=== PATIENT | male | born 1965 | race Caucasian/White ===

== ENCOUNTER 2018-12-23 06:53 | Emergency (ER) | payer OTHER ==
--- NOTE | 2018-12-23 07:01 | ED Physician Documentation ---
PD HPI LOWER EXT INJURY - Stated complaint Stated Complaint: L LEG LACERATION - History obtained from History obtained from: Patient - History of Present Illness PD HPI LOW EXT INJURY LOCATION: Left, Thigh Type of injury: Laceration (he accidentally pushed his leg against melissa tip of his arrow in the quiver (it was sitting on the floor), with laceration to the thigh that bled well.) Where injury occurred: Home Timing - onset: Today Timing - details: Abrupt onset, Still present (bleeding stopped enroute.) Worsened by: Palpating Associated symptoms: No: Weakness, Numbness Contributing factors: No: Anticoagulated Review of Systems Skin: reports: Laceration (s) Neurologic: denies: Focal weakness, Numbness PD PAST MEDICAL HISTORY - Past Medical History Past Medical History: No - Allergies Allergies/Adverse Reactions: Allergies Allergy/AdvReac Type Severity Reaction Status Date / Time No Known Drug Allergies Allergy Verified 12/23/18 07:03 PD ED PE NORMAL - Vitals Vital signs reviewed: Yes - General General: Alert and oriented X 3, No acute distress, Well developed/nourished - Derm Derm: Normal color, Warm and dry - Extremities Extremities: Other (The left thigh has a V-shaped laceration in the anterior aspect with mild bleeding. There is no foreign body. It goes down the sub-cutaneous fatty tissue but no muscle exposure. It is 2 cm in length.) - Neuro Neuro: Alert and oriented X 3, No motor deficit, No sensory deficit Results - Vitals Vitals: Vital Signs - 24 hr 12/23/18 07:01 Temperature 36.5 C Heart Rate 60 Respiratory 17 Rate Blood Pressure 125/84 H O2 Saturation 99 Oxygen O2 Source Room air Procedures - Laceration (location) left thigh anterior Length in cm: 2 Wound type: Flap (v-shaped), Into subcut fat, Clean Neurovascular status: Sensory intact, Motor intact, Vascular intact Anesthesia: Lidocaine 2% Wound Preparation: Wound explored, To the base. No: FB identified Skin layer closure: Nylon, Interrupted, Size #-0 - enter number (4), Sutures - enter # (5) Other: Patient tolerated well, No complications, Neurovascular intact, Dressing applied, Tetanus UTD Complexity: Simple Departure - Departure Disposition: 01 Home, Self Care Clinical Impression: Laceration of left thigh Qualifiers: Encounter type: initial encounter Qualified Code(s): S71.112A - Laceration without foreign body, left thigh, initial encounter Condition: Stable Record reviewed to determine appropriate education?: Yes Instructions: ED Laceration All Comments: It is okay to wash and shower. Clean off the wound twice a day with soap and water, or peroxide and water. Apply some antibiotic ointment to it to keep it moist. Also to watch for signs of infection such as purulence, redness or increasing pain. Return to your primary care or the ER at the specified time for suture removal. Suture removal 8 to 10 days Tylenol or ibuprofen if needed for pain.
[2018-12-23 07:03] VITALS: BP 125/84
== END 2018-12-23 07:43 | disposition home or self-care (01) ==
LOC: ED 06:53
DX: S71.112A Laceration without foreign body, left thigh, initial encounter (principal); W22.8XXA Striking against or struck by other objects, initial encounter; Y92.009 Unspecified place in unspecified non-institutional (private) residence as the place of occurrence of the external cause
CPT/HCPCS: 12001; 99281

== ENCOUNTER 2018-12-29 11:42 | Emergency (ER) | payer OTHER ==
--- NOTE | 2018-12-29 12:45 | ED Physician Documentation ---
PD HPI HEAD INJURY - Stated complaint Stated Complaint: HEAD LAC - Chief complaint Chief Complaint: Laceration - History obtained from History obtained from: Patient - History of Present Illness Mechanism of head injury: Blow Where head injury occurred: Home Timing - onset: Today Location of injury: Front Quality of pain: Pain Associated symptoms: Other (laceration). No: LOC, AMS, Amnesia, Nausea / vomiting, Neck pain, Paresthesias, Seizures, Ear drainage, Nasal drainage Symptoms improve with: Rest Symptoms worsen with: Palpation Contributing factors: No: Anticoagulated Similar symptoms before: Diagnosis (laceration) Recently seen: Not recently seen - Additional information Additional information: 53-year-old male was up on a ladder today pulling some lumbar when something fell from above glancing his head and causing a small laceration. The patient had no loss of consciousness he did not see stars and he has no neck pain. He denies any nausea dizziness or difficulty concentrating. Review of Systems Constitutional: denies: Fever Eyes: denies: Decreased vision Ears: denies: Loss of hearing, Ear pain Nose: denies: Congestion Throat: denies: Sore throat Respiratory: denies: Cough GI: denies: Nausea, Vomiting Skin: reports: Laceration (s) PD PAST MEDICAL HISTORY - Allergies Allergies/Adverse Reactions: Allergies Allergy/AdvReac Type Severity Reaction Status Date / Time No Known Drug Allergies Allergy Verified 12/23/18 07:03 - Social History Does the pt smoke?: No Smoking Status: Never smoker PD ED PE NORMAL - Vitals Vital signs reviewed: Yes (hypertensive ) - General General: Alert and oriented X 3, No acute distress, Well developed/nourished - HEENT HEENT: PERRL, EOMI, Other (There is a 2cm superficial flap laceration to the scalp just foreward of the vertex. ) - Neck Neck: Supple, no meningeal sign, No bony TTP - Respiratory Respiratory: No respiratory distress - Derm Derm: Normal color, Warm and dry, No rash - Extremities Extremities: No deformity, No edema - Neuro Neuro: Alert and oriented X 3, fluid dynamicist 2-12 intact, No motor deficit, No sensory deficit, Normal speech Eye Opening: Spontaneous Motor: Obeys Commands Verbal: Oriented GCS Score: 15 - Psych Psych: Normal mood, Normal affect Results - Vitals Vitals: Vital Signs - 24 hr 12/29/18 11:59 Temperature 36.3 C L Heart Rate 70 Respiratory 18 Rate Blood Pressure 130/81 H O2 Saturation 98 Oxygen O2 Source Room air Procedures - Laceration (location) scalp Length in cm: 2 Wound type: Curved, Flap, Superficial, Clean Neurovascular status: Sensory intact, Motor intact, Vascular intact Wound Preparation: Irrigated copiously NS, Wound explored, To the base Skin layer closure: Dermabond Other: Patient tolerated well, No complications, Neurovascular intact, Dressing applied, Tetanus UTD Complexity: Simple PD MEDICAL DECISION MAKING - ED course Complexity details: considered differential, d/w patient ED course: 53-year-old male with a superficial flap laceration to the scalp is repaired with Dermabond and tolerates this well. He is uncertain about his tetanus status thinks it might of been 3 or 4 years ago and he is going in for a follow-up. This wound is not deep and is not contaminated. Departure - Departure Disposition: 01 Home, Self Care Clinical Impression: Scalp laceration Qualifiers: Encounter type: initial encounter Qualified Code(s): S01.01XA - Laceration without foreign body of scalp, initial encounter Condition: Stable Instructions: ED Laceration Facial Skin Glue Follow-Up: Your, doctor [Other]
[2018-12-29 12:51] VITALS: BP 128/80
== END 2018-12-29 12:50 | disposition home or self-care (01) ==
LOC: ED 11:42
DX: S01.01XA Laceration without foreign body of scalp, initial encounter (principal); W20.8XXA Other cause of strike by thrown, projected or falling object, initial encounter; Y93.89 Activity, other specified; Y92.009 Unspecified place in unspecified non-institutional (private) residence as the place of occurrence of the external cause
CPT/HCPCS: 12001; 99281

== ENCOUNTER 2019-10-06 17:48 | Emergency (ER) | payer OTHER ==
[2019-10-06] MEDS ORDERED: KETOROLAC 30 MG/ML VIAL IVP STA (18:03)
[2019-10-06] MEDS ORDERED: SODIUM CHLORIDE 0.9% 1,000 ML IV STA (18:03)
[2019-10-06] MEDS ORDERED: DEXAMETHASONE 10 MG/ML VIAL IVP STA (18:03)
--- NOTE | 2019-10-06 18:04 | ED Physician Documentation ---
History of Present Illness - Stated complaint Stated Complaint: CHILLS - Chief complaint Chief Complaint: General - History obtained from History obtained from: Patient (Healthy 54-year-old gentleman developed shaking chills, fevers, fatigue and sore throat 3 days ago. He has a somewhat muffled voice and feels himself drooling more than normal. Denies runny nose or cough. No sick contacts.) Review of Systems Constitutional: reports: Fever, Chills Nose: denies: Rhinorrhea / runny nose Throat: reports: Sore throat Respiratory: denies: Dyspnea, Cough PD PAST MEDICAL HISTORY - Present Medications Home Medications: Ambulatory Orders Medication Instructions Recorded Confirmed predniSONE [Deltasone] 60 mg PO DAILY 5 Days #15 tablet 10/06/19 - Allergies Allergies/Adverse Reactions: Allergies Allergy/AdvReac Type Severity Reaction Status Date / Time No Known Drug Allergies Allergy Verified 10/06/19 17:55 - Social History Does the pt smoke?: No Smoking Status: Never smoker PD ED PE NORMAL - Vitals Vital signs reviewed: Yes - General General: Alert and oriented X 3, No acute distress - HEENT HEENT: PERRL, EOMI, Other (He has almost kissing tonsillitis with quite red tonsils and tonsillar pillars.) - Neck Neck: Supple, no meningeal sign, No bony TTP - Neuro Neuro: Alert and oriented X 3, Normal speech - Psych Psych: Normal mood, Normal affect Results - Vitals Vitals: Vital Signs - 24 hr 10/06/19 10/06/19 10/06/19 17:51 18:03 18:33 Temperature 39.6 C H Heart Rate 116 H 110 H 104 H Respiratory 18 31 H 26 H Rate Blood Pressure 139/85 H 151/100 H 146/88 H O2 Saturation 96 96 96 10/06/19 10/06/19 19:03 19:30 Temperature 37.8 C H Heart Rate 98 93 Respiratory 20 28 H Rate Blood Pressure 137/82 H 140/96 H O2 Saturation 98 96 Oxygen O2 Source Room air - Labs Labs: Laboratory Tests 10/06/19 10/06/19 10/06/19 18:09 18:18 18:18 WBC 11.7 H RBC 5.10 Hgb 15.3 Hct 44.4 MCV 87.1 MCH 30.0 MCHC 34.5 RDW 12.6 Plt Count 183 MPV 9.0 Neut # (Auto) Not Reportable Lymph # (Auto) Not Reportable [place] # (Auto) Not Reportable Eos # (Auto) Not Reportable Baso # (Auto) Not Reportable Absolute Nucleated RBC Not Reportable Total Counted 100 Band Neuts % (Manual) 6 Abnorm Lymph % (Manual) 0 Nucleated RBC % Not Reportable Neutrophils # (Manual) 9.2 H Lymphocytes # (Manual) 0.9 L Monocytes # (Manual) 1.5 H Eosinophils # (Manual) 0.0 Basophils # (Manual) 0.0 Differential Comment MANUAL DIFFERENTIAL Manual Slide Review Indicated Platelet Estimate NORMAL (130-450,000) Platelet Morphology NORMAL APPEARANCE RBC Morph Micro Appear NORMAL APPEARANCE Sodium 132 L Potassium 3.6 Chloride 93 L Carbon Dioxide 23 Anion Gap 16.0 H BUN 16 Creatinine 1.0 Estimated GFR (MDRD) 78 L Glucose 118 H Lactic Acid Calcium 8.6 Total Bilirubin 0.8 AST 30 ALT 41 Alkaline Phosphatase 65 Total Protein 8.3 H Albumin 4.0 Globulin 4.3 H Albumin/Globulin Ratio 0.9 L Lipase 25 Group A Strep Rapid Negative 10/06/19 18:18 WBC RBC Hgb Hct MCV MCH MCHC RDW Plt Count MPV Neut # (Auto) Lymph # (Auto) [place] # (Auto) Eos # (Auto) Baso # (Auto) Absolute Nucleated RBC Total Counted Band Neuts % (Manual) Abnorm Lymph % (Manual) Nucleated RBC % Neutrophils # (Manual) Lymphocytes # (Manual) Monocytes # (Manual) Eosinophils # (Manual) Basophils # (Manual) Differential Comment Manual Slide Review Platelet Estimate Platelet Morphology RBC Morph Micro Appear Sodium Potassium Chloride Carbon Dioxide Anion Gap BUN Creatinine Estimated GFR (MDRD) Glucose Lactic Acid 1.4 Calcium Total Bilirubin AST ALT Alkaline Phosphatase Total Protein Albumin Globulin Albumin/Globulin Ratio Lipase Group A Strep Rapid PD MEDICAL DECISION MAKING - ED course ED course: 54-year-old gentleman with high fever, sore throat and clinical findings of tonsillitis. Mild elevation in white count. No other clinical markers of sepsis. Feeling better after IV fluids, Toradol, Decadron. Received IM penicillin. Departure - Departure Disposition: 01 Home, Self Care Clinical Impression: Pharyngitis Qualifiers: Pharyngitis/tonsillitis etiology: streptococcus Qualified Code(s): J02.0 - Streptococcal pharyngitis Fever Qualifiers: Fever type: unspecified Qualified Code(s): R50.9 - Fever, unspecified Condition: Good Record reviewed to determine appropriate education?: Yes Instructions: ED Strep Pharyngitis Poss Prescriptions: predniSONE [Deltasone] 60 mg PO DAILY 5 Days #15 tablet Comments: Tylenol or ibuprofen as needed for the fever. I am also prescribing some steroids which will help with the inflammation in your throat. Return if worse. He did receive intramuscular penicillin here which should complete the course of antibiotics for the throat infection. Follow-up with your doctor in 2 days for recheck.
[2019-10-06 18:30] LABS: BASOPHILS % (AUTO) 0.2 %; EOSINOPHILS % (AUTO) 0.1 %; HGB - HEMOGLOBIN 15.3 g/dL (14.0-18.0); LYMPHOCYTES % (AUTO) 7.7 %; MEAN CORPUSCULAR HGB CONC 34.5 g/dL (32.0-36.0); MEAN CORPUSCULAR VOLUME 87.1 fL (80.0-94.0); MONOCYTES % (AUTO) 14.1 %; NEUTROPHILS % (AUTO) 77.2 %; PLT - PLATELET COUNT 183 10^3/uL (130-450); RED CELL DISTRIBUTION WIDTH 12.6 % (12.0-15.0); WHITE BLOOD COUNT 11.7 x10^3/uL (4.8-10.8)
[2019-10-06 18:44] LABS: ALBUMIN/GLOBULIN RATIO 0.9 (1.0-2.2); BILIRUBIN,TOTAL 0.8 mg/dL (0.2-1.0); CALCIUM 8.6 mg/dL (8.5-10.3); TOTAL PROTEIN 8.3 g/dL (6.7-8.2)
[2019-10-06 18:51] LABS: RAPID STREP SCREEN Negative (Negative)
[2019-10-06 19:18] LABS: ABNORMAL LYMPHS % (MANUAL) 0 %
[2019-10-06] MEDS ORDERED: cefTRIAXone 1 GM in SODIUM CHLORIDE 0.9% MINIBAG 100 ML IV STA (19:19)
[2019-10-06] MEDS ORDERED: PENICILLIN G BENZATHINE 600,000 UNIT/ML SYRINGE IM STA (19:22)
[2019-10-06 19:46] LABS: BAND NEUTROPHILS % (MANUAL) 6 %; DIFFERENTIAL COMMENT MANUAL DIFFERENTIAL; LYMPHOCYTES # (MANUAL) 0.9 10^3/uL (1.5-3.5); LYMPHOCYTES % (MANUAL) 8 %; MONOCYTES # (MANUAL) 1.5 10^3/uL (0.0-1.0); PLATELET ESTIMATE, MANUAL NORMAL (130-450,000) (NORMAL); PLATELET MORPHOLOGY NORMAL APPEARANCE (NORMAL); RBC MORPHOLOGY (MULTIPLE) NORMAL APPEARANCE (NORMAL)
[2019-10-06 20:10] VITALS: BP 130/74
== END 2019-10-06 20:24 | disposition home or self-care (01) ==
LOC: ED 17:48
DX: J02.0 Streptococcal pharyngitis (principal)
CPT/HCPCS: 36415; 80053; 83605; 83690; 85025; 87070; 87430; 96361; 96374; 99284

== ENCOUNTER 2019-10-07 11:35 | Emergency (ER) | payer OTHER ==
[2019-10-07] MEDS ORDERED: cefTRIAXone 1 GM in SODIUM CHLORIDE 0.9% MINIBAG 100 ML IV STA (13:35)
[2019-10-07] MEDS ORDERED: SODIUM CHLORIDE 0.9% 1,000 ML IV STA (13:35)
[2019-10-07] MEDS ORDERED: KETOROLAC 30 MG/ML VIAL IVP STA (13:35)
--- NOTE | 2019-10-07 13:38 | ED Physician Documentation ---
PD HPI HEENT - Stated complaint Stated Complaint: SORE THROAT/COUGH - Chief complaint Chief Complaint: Heent - History obtained from History obtained from: Patient - History of Present Illness Timing - onset: How many days ago (5) Timing - duration: Days (5) Timing - details: Gradual onset, Still present Location: Throat Improves: Medication Worsens: Swalllowing Associated symptoms: Fever, Congestion, Unable to swallow, Swollen nodes, Headache Similar symptoms before: Has not had sx before Recently seen: Emergency Dept - Additional information Additional information: 54-year-old male developed severe tonsillitis yesterday he had a rapid strep done which was negative he was placed on to penicillin and given a dose of dexamethasone. He was unable to sleep last night this morning he awakens with worsening pain in his throat. His fever is improved. He has not eaten anything in 4 days. He feels he was able to keep up with his fluids but today the pain is limiting. Review of Systems Constitutional: reports: Fever, Chills, Myalgias, Fatigue Eyes: denies: Decreased vision Ears: denies: Ear pain Throat: reports: Sore throat Cardiac: denies: Chest pain / pressure, Palpitations Respiratory: denies: Dyspnea, Cough GI: denies: Abdominal Pain, Nausea, Vomiting : denies: Dysuria, Frequency PD PAST MEDICAL HISTORY - Past Surgical History Past Surgical History: No - Present Medications Home Medications: Ambulatory Orders Medication Instructions Recorded Confirmed predniSONE [Deltasone] 60 mg PO DAILY 5 Days #15 tablet 10/06/19 Amox/Clav 875/125 [Augmentin] 1 each PO Q12H #20 tablet 10/07/19 - Allergies Allergies/Adverse Reactions: Allergies Allergy/AdvReac Type Severity Reaction Status Date / Time No Known Drug Allergies Allergy Verified 10/06/19 17:55 - Social History Does the pt smoke?: No Smoking Status: Never smoker Does the pt drink ETOH?: Yes Does the pt have substance abuse?: No PD ED PE NORMAL - Vitals Vital signs reviewed: Yes (hypertensive ) - General General: Alert and oriented X 3, No acute distress, Well developed/nourished, Other (voice is normal today) - HEENT HEENT: Atraumatic, PERRL, EOMI, Ears normal, Other (The pharynx has 3+ tonsils uvula is markedly inflamed the tonsils are cryptic and exudative. There is a lot of exudate posteriorly. I am not able to appreciate a specific mass. A mass could be easily hiding.) - Neck Neck: Supple, no meningeal sign, No bony TTP - Cardiac Cardiac: RRR, No murmur - Respiratory Respiratory: No respiratory distress, Clear bilaterally - Abdomen Abdomen: Soft, Non tender - Back Back: No CVA TTP, No spinal TTP - Derm Derm: Normal color, Warm and dry, No rash - Extremities Extremities: No deformity, No edema, No calf tenderness / cord - Neuro Neuro: Alert and oriented X 3, central office mechanic 2-12 intact, No motor deficit, No sensory deficit, Normal speech Eye Opening: Spontaneous Motor: Obeys Commands Verbal: Oriented GCS Score: 15 - Psych Psych: Normal mood, Normal affect Results - Vitals Vitals: Vital Signs - 24 hr 10/07/19 11:44 Temperature 37.0 C Heart Rate 75 Respiratory 18 Rate Blood Pressure 137/94 H O2 Saturation 97 Oxygen O2 Source Room air PD MEDICAL DECISION MAKING - ED course Complexity details: considered differential, d/w patient ED course: 54-year-old male with severe tonsillitis with marked swelling and exudate has not been able to eat his pain is a limiting factor today and he feels that he is likely dehydrated as he is not even taking water now. An IV is begun is given intravenous saline and Rocephin as well as Toradol. He has improvement in his pain and ability to swallow. Departure - Departure Disposition: 01 Home, Self Care Clinical Impression: Tonsillopharyngitis Condition: Stable Instructions: ED Peritonsillar Infec Abx No I andD Follow-Up: [facility] [Provider Group] Prescriptions: Amox/Clav 875/125 [Augmentin] 1 each PO Q12H #20 tablet
[2019-10-07 14:54] VITALS: BP 147/88
== END 2019-10-07 15:05 | disposition home or self-care (01) ==
LOC: ED 11:35
DX: J03.90 Acute tonsillitis, unspecified (principal)
CPT/HCPCS: 96365; 96375; 99284

== ENCOUNTER 2019-10-14 15:41 | Outpatient (CLI) | payer MEDICAID ==
[2019-10-14] MEDS ORDERED: IOVERSOL 320 100 ML VIAL IVP ONE ×2 (15:56→16:18)
--- NOTE | 2019-10-14 16:34 | CT Report ---
PROCEDURE: SOFT TISSUE NECK W INDICATIONS: ACUTE TONSILLITIS, UNSPEC CONTRAST: IV CONTRAST: Optiray 320 ml: 100 PO CONTRAST: *NO PO CONTRAST TECHNIQUE: After the administration of intravenous contrast, 3.0 mm axial sections acquired from the sella to th e aortic arch. Additional oblique axial 3.0 mm sections acquired through the pharynx. 3 mm thick co alpesh reformats were generated. For radiation dose reduction, the following was used: automated exp osure control, adjustment of mA and/or kV according to patient size. COMPARISON: None. FINDINGS: Image quality: Excellent. Lymph nodes: Level 2A lymph nodes are enlarged bilaterally measuring 15 mm. Vessels: Visualized vasculature appears patent. Neck spaces: There is bilateral prominence with slight increased enhancement of the tonsillar regions bilaterally. No surrounding inflammatory change. Slight appearance of airway narrowing is present at this level. Glands: The parotid and submandibular glands appear normal. The thyroid is normal in size. Miscellaneous: Visualized brain and orbits appear normal. Lung apices appear clear. Superficial so ft tissues appear normal. Bones: No suspicious bony lesions. Visualized sinuses and mastoids appear unremarkable. IMPRESSION: 1. Mild bilateral prominence of the tonsillar regions bilaterally. No focal fluid collection to sugge st abscess. No surrounding inflammatory change. This could be secondary to reactive infection or infl ammation given presence of prominent lymph nodes. However, other etiologies such as lymphoma or neopl asm cannot be excluded and short interval imaging follow-up is recommended to document resolution. Reviewed by: Nalini Le MD on 10/14/2019 4:33 PM PDT Approved by: Nalini Le MD on 10/14/2019 4:33 PM PDT Station ID: [id number]
== END 2019-10-14 15:42 | disposition home or self-care (01) ==
LOC: DI 15:41
PROVIDERS: ATTEND Otolaryngology
DX: J35.3 Hypertrophy of tonsils with hypertrophy of adenoids (principal); R59.0 Localized enlarged lymph nodes
CPT/HCPCS: 70491; Q9967

== ENCOUNTER 2020-10-18 21:11 | Emergency (ER) | payer MEDICAID, OTHER ==
[2020-10-18] MEDS ORDERED: predniSONE 20 MG TABLET PO STA (21:44)
--- NOTE | 2020-10-18 21:45 | ED Physician Documentation ---
History of Present Illness - Stated complaint Stated Complaint: LT SIDE WEAKNESS - Chief complaint Chief Complaint: General - History obtained from History obtained from: Patient - Additonal information Additional information: 55-year-old man presents with 2 days of left facial weakness that has not gone away since yesterday. He states that he went to a chiropractor at 8 AM and then around 10 AM yesterday he developed L facial weakness. He has no other symptoms and otherwise feels normal. Review of Systems Ten Systems: 10 systems reviewed and negative Constitutional: denies: Fever, Chills, Myalgias Neurologic: reports: Focal weakness, Other (difficulty drinking). denies: Numbness, Difficulty speaking, Headache, Head injury PD PAST MEDICAL HISTORY - Past Surgical History Past Surgical History: No - Present Medications Home Medications: Ambulatory Orders Medication Instructions Recorded Confirmed predniSONE [Deltasone] 60 mg PO DAILY 5 Days #15 tablet 10/06/19 Amox/Clav 875/125 [Augmentin] 1 each PO Q12H #20 tablet 10/07/19 Mineral Oil/Petrolatum,White 3.5 gm OP QPM #1 bottle 10/18/20 [Lubricant Pm Eye Ointment] predniSONE [Deltasone] 60 mg PO QDAC 6 Days #18 tab 10/18/20 - Allergies Allergies/Adverse Reactions: Allergies Allergy/AdvReac Type Severity Reaction Status Date / Time No Known Drug Allergies Allergy Verified 10/18/20 21:31 - Social History Does the pt smoke?: No Smoking Status: Never smoker Does the pt drink ETOH?: Yes Does the pt have substance abuse?: No PD ED PE NORMAL - Vitals Vital signs reviewed: Yes - General General: Alert and oriented X 3, No acute distress, Well developed/nourished - HEENT HEENT: Atraumatic, PERRL, EOMI, Ears normal, Moist mucous membranes, Pharynx benign - Neck Neck: Supple, no meningeal sign - Derm Derm: Normal color, Warm and dry, No rash - Extremities Extremities: No deformity - Neuro Neuro: Alert and oriented X 3, traffic supervisor 2-12 intact, No motor deficit (no deficit with exception of mild upper and lower L facial weakness), No sensory deficit, Normal speech, Other (normal gait, cerebellar testing and strength) - Psych Psych: Normal mood, Normal affect Results - Vitals Vitals: Vital Signs - 24 hr 10/18/20 10/18/20 21:26 21:30 Temperature 36.7 C 36.7 C Heart Rate 70 70 Respiratory 16 16 Rate Blood Pressure 126/79 126/79 O2 Saturation 98 98 Oxygen O2 Source Room air PD MEDICAL DECISION MAKING - ED course ED course: 55-year-old man presents with Hayes's palsy of left upper and lower face. No other deficits noted on thorough neurologic exam. House Brackmann class II (mild dysfunction). will hold acyclovir. Patient has a video conference in 1 week with his primary doctor. He will be evaluated at that time for improvement in symptoms after steroid treatment. Strict return precautions given. Departure - Departure Disposition: 01 Home, Self Care Clinical Impression: Hayes palsy Condition: Good Instructions: ED [place] [facility] Prescriptions: predniSONE [Deltasone] 60 mg PO QDAC 6 Days #18 tab Mineral Oil/Petrolatum,White [Lubricant Pm Eye Ointment] 3.5 gm OP QPM #1 bottle Comments: You were seen in the emergency department for Hayes's palsy. Please return to the emergency department if you have any new or worsening symptoms or other concerns. Follow-up with your doctor in 6 days.
[2020-10-18 22:05] VITALS: BP 122/75
== END 2020-10-18 22:05 | disposition home or self-care (01) ==
LOC: ED 21:11
DX: G51.0 Bell's palsy (principal)
CPT/HCPCS: 36415; 93005; 99283; J7512

== ENCOUNTER 2022-04-17 15:24 | Emergency (ER) | payer OTHER ==
[2022-04-17 15:37] VITALS: BP 143/90
--- NOTE | 2022-04-17 15:48 | ED Physician Documentation ---
History of Present Illness - Stated complaint Stated Complaint: COUGH/SOA - Chief complaint Chief Complaint: Resp - History obtained from History obtained from: Patient - Additonal information Additional information: Otherwise healthy 56-year-old gentleman has had a cold for 2 weeks. He has runny nose, scratchy throat, and cough. He does not feel short of breath, but his boss was working with him and he thought he looked short of breath. He works in the restaurant industry. Review of Systems Constitutional: denies: Fever, Chills Ears: denies: Drainage/discharge Nose: reports: Rhinorrhea / runny nose Throat: reports: Sore throat Respiratory: reports: Cough. denies: Dyspnea PD PAST MEDICAL HISTORY - Past Surgical History Past Surgical History: No - Present Medications Home Medications: Ambulatory Orders Medication Instructions Recorded Confirmed Benzonatate [Tessalon] 200 mg PO TID PRN #20 cap 04/17/22 Fluticasone [Flonase] 1 sprays WILEY BID #16 gm 04/17/22 Guaifenesin/Pseudoephedrne HCl 1 each PO BID PRN #20 tab 04/17/22 [Mucinex D ER 600-60 mg Tablet] - Allergies Allergies/Adverse Reactions: Allergies Allergy/AdvReac Type Severity Reaction Status Date / Time No Known Drug Allergies Allergy Verified 04/17/22 15:35 - Social History Does the pt smoke?: No Smoking Status: Never smoker Does the pt drink ETOH?: Yes Does the pt have substance abuse?: No - Immunizations Immunizations are current?: Yes PD ED PE NORMAL - Vitals Vital signs reviewed: Yes - General General: Alert and oriented X 3, No acute distress - HEENT HEENT: Pharynx benign - Neck Neck: Supple, no meningeal sign, No bony TTP - Cardiac Cardiac: RRR, No murmur - Respiratory Respiratory: No respiratory distress, Clear bilaterally - Abdomen Abdomen: Non tender - Back Back: No CVA TTP, No spinal TTP - Derm Derm: Normal color, Warm and dry - Extremities Extremities: No edema, No calf tenderness / cord - Neuro Neuro: Alert and oriented X 3, Normal speech Results - Vitals Vitals: Vital Signs - 24 hr 04/17/22 15:34 Temperature 36.8 C Heart Rate 66 Respiratory 14 Rate Blood Pressure 143/90 H O2 Saturation 97 Oxygen O2 Source Room air PD Medical Decision Making - ED course ED course: Patient with normal exam and persistent viral URI symptoms after 13 days. 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 Per the CDC website, RSV is contagious for 3 to 8 days, so he should not be contagious anymore. I offered to test him for that but he declined. Departure - Departure Disposition: 01 Home, Self Care Clinical Impression: Upper respiratory infection Qualifiers: URI type: unspecified viral URI Qualified Code(s): J06.9 - Acute upper respiratory infection, unspecified Condition: Good Record reviewed to determine appropriate education?: Yes Instructions: ED URI Viral Prescriptions: Fluticasone [Flonase] 1 sprays WILEY BID #16 gm Guaifenesin/Pseudoephedrne HCl [Mucinex D ER 600-60 mg Tablet] 1 each PO BID PRN #20 tab PRN Reason: congestion Benzonatate [Tessalon] 200 mg PO TID PRN #20 cap PRN Reason: Cough Comments: As discussed, given the time course and lack of fever no reason you cannot retur n to work. I would recommend good handwashing as per usual and mask wearing. Return for new or worsening symptoms. Follow-up with your doctor if not better over the next couple of weeks.
== END 2022-04-17 15:51 | disposition home or self-care (01) ==
LOC: ED 15:24
DX: J06.9 Acute upper respiratory infection, unspecified (principal)
CPT/HCPCS: 99282; 99283